=== PATIENT | female | born 1985 | race Caucasian/White ===

== ENCOUNTER 2018-04-20 13:09 | Emergency (ER) | payer OTHER ==
--- NOTE | 2018-04-20 15:04 | ED GENERAL ADULT ---
History of Present Illness General Chief Complaint: ETOH/Drug Related Complaint Stated Complaint: SENT IN FOR HIGHWATCH Source: patient Exam Limitations: no limitations Vital Signs & Intake/Output Vital Signs & Intake/Output Vital Signs Date Time Temp Pulse Resp B/P B/P Pulse O2 O2 Flow FiO2 Mean Ox Delivery Rate 04/20 1336 97.4 61 18 123/79 98 Room Air Allergies Coded Allergies: No Known Allergies (04/20/18) Triage Note: 32F HERE FOR CLEARANCE FOR [facility] FOR ETOH DETOX. REPORTS DAILY 10-12 DRINKS X5 YEARS, WORSE SINCE AUGUST. LAST DRINK YESTERDAY. DENIES HX OF W/D SEIZURES OR DT'S. CIWA 0 AT THIS TIME. STARTED BENZO USE 5 DAYS AGO AND AWARE THAT THIS MEDICATION CANNOT BE CONTINUED AT [facility] AND IN AGREEMENT WITH THIS. EXPLAINED PLAN FOR EVALUATION AND CIWA ASSESSMENTS. DENIES SI/HI AND IS PLEASANT, CALM AND COOPERATIVE Triage Nurses Notes Reviewed? yes : No Patient currently breastfeeds: No HPI: 32F PMH EtOH abuse here for admission to [facility]. Drinks 10-12 drinks for the past 9 months, prior to that a bottle of wine 4x/week, drinking has increased recently, wants to detox and quit. Last drink 26 hours ago. Never had any symptoms of withdrawal. Currently asymptomatic and no symptoms of withdrawal. No drug use. Placed on a benzo by her primary psychiatrist, none since yesterday. No other complaints. No evidence of withdrawal. No SI/HI. Mother can drive her to [facility]. Past History Travel History Traveled to [place] past 21 day No Medical History Any Pertinent Medical History? see below for history Surgical History Surgical History: non-contributory Psychosocial History What is your primary language Swedish Tobacco Use: Refused to answer Family History Hx Contributory? No Review of Systems Review of Systems Constitutional: Reports: no symptoms. EENTM: Reports: no symptoms. Respiratory: Reports: no symptoms. Cardiovascular: Reports: no symptoms. GI: Reports: no symptoms. Genitourinary: Reports: no symptoms. Musculoskeletal: Reports: no symptoms. Skin: Reports: no symptoms. Neurological/Psychological: Reports: no symptoms. Hematologic/Endocrine: Reports: no symptoms. Immunologic/Allergic: Reports: no symptoms. All Other Systems: Reviewed and Negative Physical Exam Physical Exam General Appearance: well developed/nourished, no apparent distress Head: atraumatic, normal appearance Eyes: Bilateral: normal appearance. Ears, Nose, Throat: normal pharynx, hearing grossly normal Neck: normal inspection, full range of motion Respiratory: normal breath sounds, no respiratory distress Cardiovascular: regular rate/rhythm Gastrointestinal: soft, non-tender Back: normal inspection, normal range of motion Extremities: normal inspection, normal range of motion Neurologic/Psych: awake, alert, oriented x 3, normal mood/affect Skin: intact, normal color, warm/dry Core Measures ACS in differential dx? No CVA/TIA Diagnosis: No Sepsis Present: No Sepsis Focused Exam Completed? No Progress Differential Diagnoses I considered the following diagnoses in my evaluation of the patient: alcohol withdrawal, depression, SI, HI, anxiety. Plan of Care: Orders Procedure Date/time Status Regular Diet 04/20 D Active URINE DRUGS OF ABUSE 04/20 134 Complete URINALYSIS 04/20 1344 Complete ETHANOL 04/20 1344 Complete COMPREHENSIVE METABOLIC PANEL 04/20 1344 Complete CBC WITHOUT DIFFERENTIAL 04/20 134 Complete Laboratory Tests 04/20/18 1500: Anion Gap 10, Estimated GFR > 60, BUN/Creatinine Ratio 25.0, Glucose 93, Calcium 9.7, Total Bilirubin 0.5, AST 36, ALT 37, Alkaline Phosphatase 34, Total Protein 6.8, Albumin 4.0, Globulin 2.8, Albumin/Globulin Ratio 1.4, CBC w Diff NO MAN DIFF REQ, RBC 4.01 L, MCV 93.6, MCH 32.8 H, MCHC 35.1, RDW 12.7, MPV 8.1, Gran % 53.4, Lymphocytes % 29.2, Monocytes % 15.6 H, Eosinophils % 1.3, Basophils % 0.5, Absolute Granulocytes 4.1, Absolute Lymphocytes 2.3, Absolute Monocytes 1.2 H, Absolute Eosinophils 0.1, Absolute Basophils 0, Serum Alcohol < 10.0 04/20/18 1350: Urine Opiates Screen < 100, Methadone Screen < 40, Barbiturate Screen < 60, Ur Phencyclidine Scrn < 6.00, Amphetamines Screen < 100, U Benzodiazepines Scrn > 800 H, Urine Cocaine Screen < 50, Urine Cannabis Screen < 5.00, Urine Color YEL , Urine Clarity HAZY H, Urine pH 7.5, Ur Specific Dalton 1.015, Urine Protein NEG, Urine Ketones NEG, Urine Nitrite NEG, Urine Bilirubin NEG, Urine Urobilinogen 0.2, Ur Leukocyte Esterase NEG, Ur Microscopic SEDIMENT EXAMINED, Urine RBC RARE, Urine WBC RARE, Ur Epithelial Cells FEW, Urine Bacteria MOD H, Urine Mucus RARE, Urine Hemoglobin NEG, Urine Glucose NEG Labs unremarkable. Spoke with Iker at [facility] who will accept patient. Mother will drive her. No signs of intoxication or withdrawal. Initial ED EKG: none Departure Departure Disposition: HOME OR SELF CARE Condition: Stable Clinical Impression Primary Impression: Alcohol abuse with alcohol-induced disorder Referrals: Patient Has No Primary Care Dr (PCP/Family) Additional Instructions: Follow up at [facility]. Departure Forms: Customer Survey General Discharge Information Critical Care Note Critical Care Note Critical Care Time: non-applicable
[2018-04-20 15:12] LABS: ABSOLUTE BASOPHIL COUNT 0 /CUMM (0.0-0.2); ABSOLUTE EOSINOPHIL COUNT 0.1 /CUMM (0.0-0.7); ABSOLUTE GRANULOCYTE CT 4.1 /CUMM (1.4-6.5); ABSOLUTE LYMPH COUNT 2.3 /CUMM (1.2-3.4); ABSOLUTE MONOCYTE COUNT 1.2 /CUMM (0.10-0.60); BASOPHIL % 0.5 % (0.0-2.0); EOSINOPHIL % 1.3 % (0-5); GRANULOCYTE % 53.4 % (42.2-75.2); HEMATOCRIT 37.5 % (37-47); MEAN CORPUSCULAR HGB 32.8 PG (27.0-31.0); MEAN CORPUSCULAR HGB CONC 35.1 G/DL (33.0-37.0); MEAN CORPUSCULAR VOLUME 93.6 FL (81.0-99.0); MEAN PLATELET VOLUME 8.1 FL (7.4-10.4); PLATELET COUNT 198 /CUMM (130-400); RBC DISTRIBUTION WIDTH 12.7 % (11.5-14.5); RED BLOOD CELL CT 4.01 /CUMM (4.20-5.40); WHITE BLOOD CELL COUNT 7.7 /CUMM (4.8-10.8)
== END 2018-04-20 16:21 ==
LOC: ERH 13:09
PROVIDERS: Emergency Medicine
DX: F10.99 Alcohol use, unspecified with unspecified alcohol-induced disorder (principal)
CPT/HCPCS: 80307; 81001; G0480